=== PATIENT | male | born 1970 | race Caucasian/White ===

== ENCOUNTER 2018-10-27 17:36 | Observation (INO) | payer SELFPAY ==
[~2018-10-27] VITALS: Ht 180.3 cm; Wt 104.3 kg
[2018-10-27] MEDS ORDERED: SODIUM CHLORIDE 0.9% 1000ML 1,000 ML IV STA (17:39)
[2018-10-27] MEDS ORDERED: ASPIRIN 81 MG CHEW TAB PO ONE ×2 (17:45→19:30)
[2018-10-27 18:12] LABS: BASOPHILS # (AUTO) 0.1 (0.0-0.1); BASOPHILS % 0.5 % (0.0-1.0); EOSINOPHILS # (AUTO) 0.1 (0.0-0.4); EOSINOPHILS % 0.8 % (0.0-6.0); HEMATOCRIT 48.6 % (38.2-49.6); HEMOGLOBIN 17.1 g/dL (14.0-18.0); LYMPHOCYTES # (AUTO) 2.3 (1.0-3.2); LYMPHOCYTES % 19.2 % (18.0-39.1); MEAN CORPUSCULAR HEMOGLOBIN 30.4 pg (28-32); MEAN CORPUSCULAR HGB CONC 35.2 g/dL (31-35); MEAN CORPUSCULAR VOLUME 86.5 fL (81-99); MONOCYTES # (AUTO) 0.8 (0.2-0.8); MONOCYTES % 6.8 % (4.4-11.3); NEUTROPHILS # (AUTO) 8.5 (2.1-6.9); NEUTROPHILS % 72.2 % (38.7-80.0); PLATELET COUNT 255 x10e3/uL (140-360); RED BLOOD COUNT 5.62 x10e6/uL (4.3-5.7)
[2018-10-27] MEDS ORDERED: NITROGLYCERIN 2% OINT 1 GM PKT TOP ONE (18:15)
[2018-10-27 18:19] LABS: INR 0.96; PROTHROMBIN TIME 13.3 seconds (11.9-14.5)
[2018-10-27] MEDS ORDERED: ASPIRIN 81 MG CHEW TAB ONE (18:19)
[2018-10-27 18:20] LABS: PARTIAL THROMBOPLASTIN TIME 29.6 seconds (23.8-35.5)
--- NOTE | 2018-10-27 18:26 | Diagnostic Imaging Report ---
EXAMINATION: CHEST SINGLE (PORTABLE) INDICATION: Chest pain. Dizziness. ^ERMD ORDER ^[id number] ^1755 ^Y COMPARISON: None FINDINGS: TUBES and LINES: None. LUNGS: Lungs are well inflated. Lungs are clear. There is no evidence of pneumonia or pulmonary edema. PLEURA: No pleural effusion or pneumothorax. HEART AND MEDIASTINUM: The cardiomediastinal silhouette is unremarkable. BONES AND SOFT TISSUES: No acute osseous lesion. Soft tissues are unremarkable. UPPER ABDOMEN: No free air under the diaphragm. IMPRESSION: No acute thoracic abnormality. Signed by: Dr. Arthur Torres M.D. on 10/27/2018 6:22 PM
[2018-10-27 18:27] LABS: ALANINE AMINOTRANSFERASE 44 IU/L (0-55); ALBUMIN 4.2 g/dL (3.5-5.0); ALBUMIN/GLOBULIN RATIO 1.1 (0.8-2.0); ALKALINE PHOSPHATASE 87 IU/L (40-150); ANION GAP 13.7 mmol/L (8-16); BLOOD UREA NITROGEN 12 mg/dL (7-26); BUN/CREATININE RATIO 10 (6-25); CALCIUM 9.7 mg/dL (8.4-10.2); CARBON DIOXIDE 24 mmol/L (22-29); CHLORIDE 101 mmol/L (98-107); CREATINE KINASE 214 IU/L (30-200); CREATININE, SERUM 1.22 mg/dL (0.72-1.25); EST GLOMERULAR FILTRATION RATE > 60 ML/MIN (60-); GLUCOSE 107 mg/dL (74-118); POTASSIUM 3.7 mmol/L (3.5-5.1); SODIUM 135 mmol/L (136-145)
--- NOTE | 2018-10-27 18:56 | Diagnostic Imaging Report ---
Examination: CT head without contrast Clinical Indication: Dizziness. Shaking. Technique: Transaxial noncontrast images from the skull base through the vertex were obtained. Sagittal and coronal reformatted images were done. Dose modulation, iterative reconstruction, and/or weight based adjustment of the mA/kV was utilized to reduce the radiation dose to as low as reasonably achievable. Comparison: None. Findings: Scalp: No abnormalities. Bones: Intact. No fractures. No blastic or lytic lesions. Brain sulci: Appropriate for patient's age. Ventricles: Normal in size and configuration. No hydrocephalus. Extra-axial space: No abnormalities. Parenchyma: No abnormal densities. No masses, hemorrhage, or acute or chronic cortical based vascular insults. Suprasellar region: No abnormalities. Craniocervical junction: The foramen magnum is patent. No Chiari one malformation. Impression: No intracranial abnormality. Signed by: Dr. Irma Alcazar M.D. on 10/27/2018 6:53 PM
[2018-10-27] MEDS ORDERED: NITROGLYCERIN 0.4 MG SUBL SL PRN (19:30)
[2018-10-27] MEDS ORDERED: ONDANSETRON HCL INJ 2MG/ML 2ML 2 MG/ML VIAL IV PRN (19:30)
[2018-10-27 19:45] LABS: BILIRUBIN,URINE NEGATIVE (NEGATIVE); CLARITY,URINE CLEAR (CLEAR); COLOR,URINE YELLOW (YELLOW); KETONES,URINE NEGATIVE (NEGATIVE); LEUKOCYTE ESTERASE ,URINE NEGATIVE (NEGATIVE); NITRITE,URINE NEGATIVE (NEGATIVE); PROTEIN,URINE DIPSTICK NEGATIVE (NEGATIVE); URINE UROBILINOGEN 0.2 mg/dL (0.2 - 1)
[2018-10-27] MEDS ORDERED: ONDANSETRON HCL 4 MG ORAL DISINTEGRATING TAB PO PRN (19:45)
--- OUTSIDE RECORDS SUMMARY | 2018-10-27 19:53 | XMS REPORT ---
Author [facility] Address Unknown Phone Unavailable Care Team Providers Care Electric Motor Tester Name Role Phone Nadege LOJA Unavailable Unavailable Problems This patient has no known problems. Allergies, Adverse Reactions, Alerts This patient has no known allergies or adverse reactions. Medications This patient has no known medications. Results Test Description Test Time Test Comments Text Results Atomic Results Result Comments CT BRAIN WO 2018-10-27 18:52:00 [place] [address] Patient Name: SAMMY OCAMPO MR #: [id number] : 1970 Age/Sex: 48/M Req #: [id number] Adm Physician: Ordered by: JULIUS NOLAN GAMEPLAY PROGRAMMER Report #: [id number] Location: ER Room/Bed: Procedure: [id number] CT/CT BRAIN WO Exam Date: 10/27/18 Exam Time: 1755 REPORT STATUS: Signed Examination: CT head without contrast Clinical Indication: Dizziness. Shaking. Technique: Transaxial noncontrast images from the skull base through the vertex were obtained. Sagittal and coronal reformatted images were done. Dose modulation, iterative reconstruction, and/or weight based adjustment of the mA/kV was utilized to reduce the radiation dose to as low as reasonably achievable. Comparison: None. Findings: Scalp: No abnormalities. Bones: Intact. No fractures. No blastic or lytic lesions. Brain sulci: Appropriate for patient's age. Ventricles: Normal in size and configuration. No hydrocephalus. Extra-axial space: No abnormalities. Parenchyma: No abnormal densities. No masses, hemorrhage, or acute or chronic cortical based vascular insults. Suprasellar region: No abnormalities. Craniocervical junction: The foramen magnum is patent. No Chiari one malformation. Impression: No intracranial abnormality. Signed by: Dr. Irma Alcazar M.D. on 10/27/2018 6:53 PM Dictated By: IRMA MAYNARD MD 52 Transcribed By: SETH on 10/27/181852 COPY TO: JULIUS NOLAN NP CHEST SINGLE (PORTABLE) 2018-10-27 18:22:00 [place] [address] Patient Name: SAMMY OCAMPO MR #: [id number] : 1970 Age/Sex: 48/M Req #: [id number] Adm Physician: Ordered by: JULIUS NOLAN GAMEPLAY PROGRAMMER Report #: [id number] Location: ER Room/Bed: Procedure: [id number] DX/CHEST SINGLE (PORTABLE) Exam Date: 10/27/18 Exam Time: 1754 REPORT STATUS: Signed EXAMINATION: CHEST SINGLE (PORTABLE) INDICATION: Chest pain. Dizziness. ERMD ORDER [id number] 175 Y COMPARISON: None FINDINGS: TUBES and LINES: None. LUNGS: Lungs are well inflated. Lungs are clear. There is no evidence of pneumonia or pulmonary edema. PLEURA: No pleural effusion or pneumothorax. HEART AND MEDIASTINUM: The cardiomediastinal silhouette is unremarkable. BONES AND SOFT TISSUES: No acute osseous lesion. Soft tissues are unremarkable. UPPER ABDOMEN: No free air under the diaphragm. IMPRESSION: No acute thoracic abnormality. Signed by: Dr. Arthur Torres M.D. on 10/27/2018 6:22 PM Dictated By: ARTHUR TORRES MD, MD 21 Transcribed By: SETH on 10/27/181821 COPY TO: JULIUS NOLAN NP
[2018-10-27] MEDS: SODIUM CHLORIDE 0.9% 1000ML 1,000 ML IV SCH ×2 (20:34→23:03)
[2018-10-27] MEDS: METOPROLOL TARTRATE 25 MG TAB PO SCH (20:34)
[2018-10-27] MEDS: FAMOTIDINE 20 MG TAB PO SCH (20:34)
[2018-10-27 22:28] VITALS: BP 136/70
[2018-10-27 22:50] VITALS: BP 136/70
[2018-10-27 22:55] VITALS: BP 136/70
[2018-10-27] MEDS: NITROGLYCERIN 2% OINT 1 GM PKT TOP SCH (23:03)
[2018-10-27 23:30] VITALS: BP 125/61
[2018-10-28 02:10] LABS: CREATINE KINASE MB 1.4 ng/mL (0-5.0)
[2018-10-28] MEDS: NITROGLYCERIN 2% OINT 1 GM PKT TOP SCH ×2 (02:14→12:00)
[2018-10-28 04:00] VITALS: BP 124/63
[2018-10-28 05:49] LABS: BASOPHILS # (AUTO) 0.1 (0.0-0.1); BASOPHILS % 0.7 % (0.0-1.0); EOSINOPHILS # (AUTO) 0.3 (0.0-0.4); EOSINOPHILS % 2.8 % (0.0-6.0); HEMATOCRIT 43.9 % (38.2-49.6); HEMOGLOBIN 14.9 g/dL (14.0-18.0); LYMPHOCYTES # (AUTO) 2.3 (1.0-3.2); LYMPHOCYTES % 25.6 % (18.0-39.1); MEAN CORPUSCULAR HEMOGLOBIN 29.9 pg (28-32); MEAN CORPUSCULAR HGB CONC 33.9 g/dL (31-35); MONOCYTES # (AUTO) 0.8 (0.2-0.8); MONOCYTES % 8.6 % (4.4-11.3); NEUTROPHILS # (AUTO) 5.4 (2.1-6.9); NEUTROPHILS % 61.7 % (38.7-80.0); PLATELET COUNT 209 x10e3/uL (140-360); RED BLOOD COUNT 4.99 x10e6/uL (4.3-5.7); RED CELL DISTRIBUTION WIDTH 12.1 % (11.7-14.4)
[2018-10-28 06:10] LABS: ANION GAP 9.2 mmol/L (8-16); BLOOD UREA NITROGEN 13 mg/dL (7-26); BUN/CREATININE RATIO 12 (6-25); CALCIUM 8.6 mg/dL (8.4-10.2); CARBON DIOXIDE 24 mmol/L (22-29); CHLORIDE 109 mmol/L (98-107); CHOL/HDL RATIO 8.5 (3.9-4.7); CHOLESTEROL 230 MD/DL (0-199); CREATININE, SERUM 1.07 mg/dL (0.72-1.25); EST GLOMERULAR FILTRATION RATE > 60 ML/MIN (60-); GLUCOSE 102 mg/dL (74-118); HDL CHOLESTEROL 27 MG/DL (40-60); LDL CHOLESTEROL 167 MG/DL (60-130); POTASSIUM 4.2 mmol/L (3.5-5.1); SODIUM 138 mmol/L (136-145); TRIGLYCERIDES 181 MG/DL (0-149)
[2018-10-28] MEDS: METOPROLOL TARTRATE 25 MG TAB PO SCH (07:50)
[2018-10-28] MEDS: FAMOTIDINE 20 MG TAB PO SCH (08:50)
[2018-10-28 08:51] VITALS: BP 131/73
[2018-10-28] MEDS ORDERED: ASPIRIN 81 MG ENTERIC COATED PO SCH (09:00)
[2018-10-28 10:57] LABS: CREATINE KINASE MB 1.3 ng/mL (0-5.0)
[2018-10-28 13:47] VITALS: BP 138/83
[2018-10-28] MEDS ORDERED: ACETAMINOPHEN 325 MG TAB PO PRN (15:00)
--- NOTE | 2018-10-28 15:47 | Consultation ---
DATE OF CONSULTATION: 10/28/2018 REASON FOR CONSULTATION: Chest pain. CHIEF COMPLAINT: Dizziness. HISTORY OF PRESENT ILLNESS: This is a 48-year-old male with history of hypertension and not taking any medications. The patient presents to [facility] ER with complaints of dizziness, also had some chest discomfort. Cardiology was consulted to evaluate the patient. The patient seen in room, in no acute distress and feels fine now. Reports that yesterday morning about 10:00 a.m., he started having some dizziness, felt like disoriented, lightheaded, throughout the day the symptoms progressed. Apparently, he says he went to go get his hair cut and once the dizziness got worse he became disoriented even more, so came to the ER for further evaluation. During the episodes, he reports he had some very light retrosternal chest tightness, nonradiating; no other symptoms besides dizziness was reported; reports the chest pain lasted for a few minutes and resolved on its own. The patient was given aspirin; however, the patient refuses because of reported nasal bleeds. Currently, the patient is asymptomatic, feels much better, denies any chest pain, any shortness of breath, any PND, any orthopnea, any lower extremity swelling. PAST MEDICAL HISTORY: Hypertension, however, not taking any medications. PAST SURGICAL HISTORY: Right thumb. SOCIAL HISTORY: He is single. He is farm contractor. Denies any tobacco use. Reports social alcohol use. FAMILY HISTORY: Mother at the age of 62 during bowel surgery. Father alive, 86, history of CABG. He has three sisters, apparently all with hypertension. ALLERGIES: NO KNOWN ALLERGIES. HOME MEDICATIONS: None. REVIEW OF SYSTEMS: GENERAL: Denies any weight change, any fatigue, weakness, fevers, chills, or night sweats. HEENT: Denies any nausea, vomiting, vision changes, any blurred vision, double vision, epistaxis, sore throat or swollen neck, bleeding gums. CARDIAC: Positive for hypertension. Chest pain as above. Denies any shortness of breath. Positive for dyspnea on exertion. No orthopnea, no PND. No lower extremity edema. RESPIRATORY: Dyspnea on exertion. No hemoptysis. GI: Good appetite. No nausea, vomiting, diarrhea, constipation, any melena, or hematochezia. URINARY: Denies any frequency, urgency, dysuria, or hematuria. VASCULAR: Denies any lower extremity edema, claudication. MUSCULOSKELETAL: Denies any muscle weakness. Positive for joint pains. Denies any lower extremity swelling. NEUROLOGIC: Denies any numbness, tingling, weakness, paralysis, fainting, seizures. HEMATOLOGY: Denies any anemia, any easy bruising. ENDOCRINE: Denies any heat or cold intolerance, any polyuria, polydipsia, polyphagia. PHYSICAL EXAMINATION: VITAL SIGNS: Height 71 inches, weight 230 pounds, BMI 32. On admission, blood pressure 194/111 and currently 131/73, temperature 96.9, pulse 67, pulse ox 98% on room air. GENERAL: Appears stated age, reliable informant, in no acute distress. SKIN: No rashes or bruises noted. HEENT: Normocephalic. Pupils are equal and reactive. Extraocular movements intact. Oral mucosa pink. NECK: Trachea midline. No JVD. No thyromegaly noted. HEART: Regular rate and rhythm. No murmurs, rubs, or clicks. LUNGS: Bilateral breath sounds clear to auscultation. Good airway entry. ABDOMEN: Soft, nontender, nondistended. No organomegaly noted. MUSCULOSKELETAL: Good muscle strength throughout. Partial right thumb amputation. VASCULAR: +2 radial pulses bilaterally and 1 DP and PT pulses bilaterally. NEUROLOGIC: Cranial nerves 2 through 12 seem intact. LABS: Sodium 138, potassium 4.2, BUN 13, creatinine 1.0. Troponin 0.01, next is 0.1. BNP 10. Triglycerides 181, total cholesterol 230, LDL 167, HDL 27. Chest x- ray, no acute abnormalities. CT brain, also no intracranial abnormalities. EKG, normal sinus rhythm. ASSESSMENT: 1. Hypertension urgency. 2. Dizziness. 3. Chest pain. 4. Hyperlipidemia. PLAN: 1. The patient presents with dizziness symptoms in the setting of hypertension urgency, blood pressure of 190s/100s. Reports he feels much better since blood pressure now is controlled. Did have episode of some chest discomfort, very mild the patient reports nonexertional. Cardiac enzymes have been negative x2 thus far. EKG without changes suggestive of acute event. Long discussion with the patient regarding treatment options. The patient does not consent for aspirin therapy because of his reports of intermittent nasal bleeds and refuses aspirin therapy here in the hospital. 2. Ischemic evaluation. Stress test offered, however, the patient is not inclined at this time. 3. Continue antihypertensive therapy. Of note, the patient also not inclined to four blood pressure medications, specifically he says does not want to be taking diuretics i.e., hydrochlorothiazide. 4. I advised the patient that he should be on statin therapy. We will go ahead and put him on Lipitor. 5. For now, the patient okay to leave since the patient is not consenting for or inclined for stress testing. Thank you very much for this consult. SEEN AND EXAMINED Dictated by Brandon Gordon NP Adriana Torres MD DC/NANETTE /[id number] ACE
[2018-10-28 17:10] VITALS: BP 154/87
[2018-10-28] MEDS ORDERED: LIPITOR20 MG (18:01)
[2018-10-28] MEDS ORDERED: ASPIRIN81 MG PO (18:01)
[2018-10-28] MEDS ORDERED: METOPROLOL TART25 MG PO (18:02)
--- NOTE | 2018-10-28 18:26 | NUR ---
patient discharged home, prescription given, IV canula removed with tip intact, no ss infiltration, denies any pain, not in any distress, walked with him to front lobby
--- NOTE | 2018-10-28 19:43 | Discharge Summary ---
HOSPITAL COURSE: A 48-year-old male, past medical history positive for hypertension, came with chest pain. EKG was normal, cardiac enzymes x3 were negative and he was discharged by Dr. Torres, Cardiology. He is going to have a stress test as an outpatient. He is told to come to the emergency room if the chest pain recurs. PHYSICAL EXAMINATION: HEART: Showed regular rhythm. Normal S1, S2 sound. LUNGS: Clear bilaterally. ABDOMEN: Soft. EXTREMITIES: Show no evidence of cyanosis, edema, or trauma. FINAL IMPRESSION: 1. Uncontrolled hypertension. 2. Atypical chest pain. 3. Hypercholesterolemia. The patient is going to be discharged on the medication that I already dictated in my prior history and physical. Follow up with Dr. Torres, Cardiology in a week for a stress test or come to the emergency room right away if the chest pain recurs. MD JUDITH Jean/NANETTE /[id number]
[2018-10-28] MEDS ORDERED: ATORVASTATIN 20 MG TAB PO SCH ×2 (21:00)
--- NOTE | 2018-10-28 22:50 | History and Physical ---
HISTORY OF PRESENT ILLNESS: The patient is a 48-year-old male with past medical history mainly positive for hypertension. He taking any blood pressure medication in the past, came with chest pain. Cardiac enzymes were negative. EKG was unremarkable. The patient refused to have a stress test done by Dr. Torres here. He want to have it done as an outpatient. He is chest pain-free. Troponins x3 were negative. Dr. Torres recommended for him to go home and do the stress test as an outpatient. REVIEW OF SYSTEMS: CARDIOVASCULAR: He had chest pain, which . RESPIRATORY: No shortness of breath. No cough. GASTROINTESTINAL: No nausea, vomiting, or diarrhea. GENITOURINARY: No frequency or no dysuria. ALLERGIES: HE IS NOT ALLERGIC TO ANYTHING. SOCIAL HISTORY: He does not drink alcohol. He does not smoke. PAST MEDICAL HISTORY: Negative for any significant medical condition except for borderline hypertension. PHYSICAL EXAMINATION: VITAL SIGNS: Blood pressure 138/83, temperature 98.7, heart rate 69 per minute, respiratory rate 18 per minute, and oxygen saturation 95%. HEART: Showed regular rhythm. Normal S1, S2 sound. LUNGS: Clear bilaterally. ABDOMEN: Soft. EXTREMITIES: Show no evidence of cyanosis or hematoma. LABORATORY DATA: BMP; sodium 138, potassium 4.2, chloride 109, CO2 of 24, BUN 13, creatinine 1.07, and glucose 102. On CBC, white count 8.79, hemoglobin 14.9, hematocrit 43.9, and platelet count 209,000. PT 13.3, INR 0.96, PTT 29.6, AST 30, ALT 44, total bilirubin is 1.3, and alkaline phosphatase 87. Troponin negative. EKG is essentially unremarkable and showed normal sinus rhythm, moderate voltage criteria for LVH. Echocardiogram was also done showing an ejection fraction 50% to 55%. No evidence of pericardial effusion. No evidence of severe valvular abnormalities. He has trace . IMPRESSION: 1. Uncontrolled hypertension. 2. Atypical chest pain. 3. Hypercholesterolemia. PLAN OF TREATMENT: The patient is going to be discharged on metoprolol 25 mg twice a day, aspirin 81 mg daily, and Lipitor 20 mg daily. MD JUDITH Jean/NANETTE /[id number]
== END 2018-10-28 18:24 | disposition home or self-care (01) ==
LOC: ER 17:36 → ERHOLD 19:50 → IMCU 22:20
PROVIDERS: ADMIT Internal Medicine; ATTEND Internal Medicine
DX: R07.89 Other chest pain (principal); I10 Essential (primary) hypertension; E78.00 Pure hypercholesterolemia, unspecified
CPT/HCPCS: 36415 ×2; 70450; 71045; 80048; 80053; 80061; 81001; 82550 ×2; 82553 ×2; 83880; 84484 ×2; 85025 ×2; 85610; 85730; 87086; 93005; 93306; 99284; G0378 ×2; J7030

== ENCOUNTER 2019-02-16 07:41 | Observation (INO) | payer SELFPAY ==
[~2019-02-16] VITALS: Ht 180.3 cm; Wt 106.6 kg
[~2019-02-16 07:41] MED LIST: ASPIRIN81 MG PO; LIPITOR20 MG; METOPROLOL TART25 MG PO
[2019-02-16] MEDS ORDERED: ASPIRIN 81 MG CHEW TAB PO ONE (08:00)
[2019-02-16] MEDS ORDERED: ASPIRIN 81 MG ENTERIC COATED PO ONE (08:09)
[2019-02-16 08:18] LABS: BILIRUBIN,URINE NEGATIVE (NEGATIVE); CLARITY,URINE CLEAR (CLEAR); COLOR,URINE YELLOW (YELLOW); KETONES,URINE NEGATIVE (NEGATIVE); LEUKOCYTE ESTERASE ,URINE NEGATIVE (NEGATIVE); NITRITE,URINE NEGATIVE (NEGATIVE); PROTEIN,URINE DIPSTICK NEGATIVE (NEGATIVE); URINE UROBILINOGEN 0.2 mg/dL (0.2 - 1)
[2019-02-16 08:21] LABS: BASOPHILS # (AUTO) 0.1 (0.0-0.1); BASOPHILS % 0.7 % (0.0-1.0); EOSINOPHILS # (AUTO) 0.3 (0.0-0.4); EOSINOPHILS % 3.5 % (0.0-6.0); HEMATOCRIT 46.4 % (38.2-49.6); HEMOGLOBIN 16.3 g/dL (14.0-18.0); LYMPHOCYTES # (AUTO) 1.4 (1.0-3.2); LYMPHOCYTES % 19.1 % (18.0-39.1); MEAN CORPUSCULAR HEMOGLOBIN 30.8 pg (28-32); MEAN CORPUSCULAR HGB CONC 35.1 g/dL (31-35); MEAN CORPUSCULAR VOLUME 87.5 fL (81-99); MONOCYTES # (AUTO) 0.6 (0.2-0.8); MONOCYTES % 8.4 % (4.4-11.3); NEUTROPHILS # (AUTO) 4.9 (2.1-6.9); NEUTROPHILS % 67.9 % (38.7-80.0); PLATELET COUNT 226 x10e3/uL (140-360); RED CELL DISTRIBUTION WIDTH 12.1 % (11.7-14.4)
[2019-02-16 08:37] LABS: BACTERIA,URINE RARE /HPF; EPITHELIAL CELLS,URINE RARE /LPF; RBC,URINE 0-5 /HPF (0-5)
--- NOTE | 2019-02-16 08:37 | NUR ---
PT STATES DR PALMA IS TO DO A HEART CATH ON 02/28, BUT NOW IS TO MOVE IT UP AND DO IT WHILE PT IS HERE. PT DENIES CP. AAOX4. SR NO ECTOPY
[2019-02-16 08:39] LABS: ALANINE AMINOTRANSFERASE 56 IU/L (0-55); ALBUMIN/GLOBULIN RATIO 1.1 (0.8-2.0); ALKALINE PHOSPHATASE 102 IU/L (40-150); BLOOD UREA NITROGEN 13 mg/dL (7-26); BUN/CREATININE RATIO 11 (6-25); CALCIUM 9.2 mg/dL (8.4-10.2); CARBON DIOXIDE 24 mmol/L (22-29); CHLORIDE 103 mmol/L (98-107); CREATINE KINASE 141 IU/L (30-200); CREATININE, SERUM 1.17 mg/dL (0.72-1.25); EST GLOMERULAR FILTRATION RATE > 60 ML/MIN (60-); GLUCOSE 121 mg/dL (74-118); SODIUM 137 mmol/L (136-145)
[2019-02-16] MEDS ORDERED: ONDANSETRON HCL INJ 2MG/ML 2ML 2 MG/ML VIAL IV PRN (09:00)
[2019-02-16] MEDS ORDERED: NITROGLYCERIN 0.4 MG SUBL SL PRN (09:00)
[2019-02-16] MEDS: METOPROLOL TARTRATE 25 MG TAB PO SCH ×2 (09:13→13:52)
[2019-02-16] MEDS: ASPIRIN 81 MG ENTERIC COATED PO SCH (09:13)
--- NOTE | 2019-02-16 09:33 | Diagnostic Imaging Report ---
EXAMINATION: CHEST SINGLE (PORTABLE) INDICATION: Chest pain COMPARISON: Chest radiograph of 10/27/2018 FINDINGS: LINES/TUBES:EKG leads overlie the chest. LUNGS:The lungs are well-inflated. No focal consolidation or pulmonary edema. PLEURA:No pleural effusion or pneumothorax. MEDIASTINUM:Cardiomediastinal silhouette is stably enlarged. BONES/SOFT TISSUES:No acute osseous injury. ABDOMEN:No free air under the diaphragm. IMPRESSION: No focal pneumonia or pulmonary edema. Unchanged cardiomegaly. Signed by: Demar Goldberg MD on 02/16/2019 9:30 AM
--- NOTE | 2019-02-16 10:10 | NUR ---
FIRST (1ST) NITRO 0.4MG @ 0953 WITH ACUTE ONSET OF CHEST PAIN NON RADIATING WITH "SOME NAUSEA," NO SOB NO DIAPHORESIS; PAIN 5/10 BP 144/91, 67, 16, 100 RA (PLACED ON OXYGEN 2 LPM) 2ND NITRO @ 0957; PAIN 2/10, HR 71, 16, 100%, 128/86 3RD NITRO @ 1005 118/72, 67, 16, 100% PAIN NOW GONE PER PT "CANT FEEL ANYTHING". ER MD NOTIFIED.
[2019-02-16] MEDS: FAMOTIDINE 20 MG/2 ML VIAL IV SCH ×2 (10:15→20:17)
[2019-02-16 10:24] VITALS: BP 144/91
[2019-02-16 13:18] VITALS: BP 152/90
--- NOTE | 2019-02-16 17:55 | Consultation ---
DATE OF CONSULTATION: 02/16/2019 Cardiology Consultation REQUESTING PHYSICIAN: Etienne Harrison MD. REASON FOR CONSULTATION: Chest pain. HISTORY OF PRESENT ILLNESS: This is a 48-year-old male with history of hypertension and hyperlipidemia, who presents with complaints of chest pain. He was recently admitted to [facility] with similar complaints. He was ruled out for myocardial infarction and discharged home for outpatient cardiac evaluation. He saw my colleague, Dr. Casillas in the office and was scheduled for a nuclear stress test later this month. However, yesterday evening, he developed chest pressure 3 to 4/10 in severity, lasting 3 to 4 hours. This was not associated with shortness of breath, nausea, diaphoresis, or radiation. He noted it was worse with lying down and improved with taking metoprolol. He then went to sleep, but when he woke up this morning, he noted his blood pressure was high and he presented to the ER for further evaluation. Of note, he reports urinary frequency since last night. REVIEW OF SYSTEMS: A 12-point review of systems was performed and is negative except as per HPI. PAST MEDICAL HISTORY: 1. Hypertension. 2. Hyperlipidemia. ALLERGIES: PLEASE SEE EMR. MEDICATIONS: Please see medication list. SOCIAL HISTORY: Denies tobacco or illicit drugs. He does drink alcohol occasionally. FAMILY HISTORY: Pertinent for heart disease in the family, specifically father with myocardial infarction x2. PHYSICAL EXAMINATION: VITAL SIGNS: Temperature 98.4 degrees, pulse 64, respiratory rate 12, blood pressure 144/91, and oxygen saturation 100%. GENERAL: Well-developed, well-nourished man, no acute distress. HEENT: Normocephalic, atraumatic. Pupils equal. No scleral icterus. NECK: Supple. No thyromegaly or cervical lymphadenopathy. No carotid bruits. LUNGS: Clear to auscultation bilaterally. No wheezes or crackles. CARDIOVASCULAR: Normal rate. Regular rhythm. No murmur. Normal S1, S2. ABDOMEN: Soft, nontender. EXTREMITIES: No edema. NEUROLOGIC: Nonfocal exam. LABORATORY DATA: WBC 7.23, hemoglobin 16.3, hematocrit 46.4, platelets 226. Sodium 137, potassium 4, chloride 103, CO2 24, BUN 13, creatinine 1.17. Troponin 0.012. EKG, normal sinus rhythm, minimal voltage criteria for LVH. Chest x-ray, no focal pneumonia or pulmonary edema. Unchanged cardiomegaly. IMPRESSION: 1. Chest pain. 2. Hypertension. 3. Hyperlipidemia. RECOMMENDATIONS: Trend cardiac markers to rule out myocardial infarction. Check CRP and D-dimer. Once he rules out for myocardial infarction, plan to proceed with nuclear stress test either later this afternoon or in the morning. Continue home cardiac medications. Thank you for this consult. We will continue to follow. Hazel Smith MD ABS/MODL /[id number]
[2019-02-16] MEDS ORDERED: LISINOPRIL 10 MG TAB PO ONE (18:30)
[2019-02-16 20:00] VITALS: BP 128/70
[2019-02-16] MEDS ORDERED: ATORVASTATIN 20 MG TAB PO SCH (21:00)
[2019-02-16 21:47] VITALS: BP 128/70
[2019-02-17] VITALS: BP 130/78
[2019-02-17 04:00] VITALS: BP 118/78
[2019-02-17 05:25] LABS: BASOPHILS # (AUTO) 0.1 (0.0-0.1); BASOPHILS % 0.5 % (0.0-1.0); EOSINOPHILS # (AUTO) 0.4 (0.0-0.4); EOSINOPHILS % 3.3 % (0.0-6.0); HEMATOCRIT 45.8 % (38.2-49.6); HEMOGLOBIN 15.6 g/dL (14.0-18.0); LYMPHOCYTES # (AUTO) 2.7 (1.0-3.2); LYMPHOCYTES % 25.4 % (18.0-39.1); MEAN CORPUSCULAR HEMOGLOBIN 30.1 pg (28-32); MEAN CORPUSCULAR HGB CONC 34.1 g/dL (31-35); MEAN CORPUSCULAR VOLUME 88.2 fL (81-99); MONOCYTES # (AUTO) 0.8 (0.2-0.8); MONOCYTES % 7.6 % (4.4-11.3); NEUTROPHILS # (AUTO) 6.6 (2.1-6.9); NEUTROPHILS % 62.5 % (38.7-80.0); PLATELET COUNT 239 x10e3/uL (140-360); RED BLOOD COUNT 5.19 x10e6/uL (4.3-5.7); RED CELL DISTRIBUTION WIDTH 12.2 % (11.7-14.4)
[2019-02-17 05:55] LABS: ALANINE AMINOTRANSFERASE 51 IU/L (0-55); ALBUMIN 3.6 g/dL (3.5-5.0); ALKALINE PHOSPHATASE 88 IU/L (40-150); ANION GAP 12.2 mmol/L (8-16); BLOOD UREA NITROGEN 15 mg/dL (7-26); BUN/CREATININE RATIO 12 (6-25); CALCIUM 9.2 mg/dL (8.4-10.2); CARBON DIOXIDE 25 mmol/L (22-29); CHLORIDE 105 mmol/L (98-107); CHOL/HDL RATIO 6.9 (3.9-4.7); CHOLESTEROL 193 MD/DL (0-199); CREATININE, SERUM 1.25 mg/dL (0.72-1.25); EST GLOMERULAR FILTRATION RATE > 60 ML/MIN (60-); GLUCOSE 107 mg/dL (74-118); HDL CHOLESTEROL 28 MG/DL (40-60); LDL CHOLESTEROL 140 MG/DL (60-130); POTASSIUM 4.2 mmol/L (3.5-5.1); SODIUM 138 mmol/L (136-145); TRIGLYCERIDES 125 MG/DL (0-149)
[2019-02-17 07:58] VITALS: BP 131/78
[2019-02-17 08:01] VITALS: BP 131/78
[2019-02-17 08:18] LABS: CREATINE KINASE MB 0.6 ng/mL (0-5.0)
[2019-02-17] MEDS ORDERED: LISINOPRIL 10 MG TAB PO SCH (09:00)
[2019-02-17] MEDS: FAMOTIDINE 20 MG/2 ML VIAL IV SCH (09:26)
--- NOTE | 2019-02-17 12:46 | Progress Note ---
DATE: 02/17/2019 Cardiology Progress Note SUBJECTIVE: The patient reports he had slight chest pain earlier similar to presentation, although less severe. He denies any shortness of breath. He was seen for nuclear stress test. OBJECTIVE: VITAL SIGNS: Temperature 97.3 degrees, pulse 89, respiratory rate 18, blood pressure 131/78, and oxygen saturation 96% on room air. GENERAL: Awake and alert, in no acute distress. LUNGS: Clear to auscultation bilaterally. No wheeze or crackles. CARDIOVASCULAR: Normal rate. Regular rhythm. No murmur. Normal S1, S2. ABDOMEN: Soft and nontender. EXTREMITIES: No edema. CARDIAC MEDICATIONS: 1. Atorvastatin 20 mg p.o. at bedtime. 2. Metoprolol tartrate 25 mg p.o. q.12 hours. 3. Aspirin 81 mg p.o. daily. 4. Lisinopril 10 mg p.o. daily. LABORATORY DATA: WBC 10.61, hemoglobin 15.6, hematocrit 45.8, platelets 239. Sodium 138, potassium 4.2, chloride 105, CO2 of 25, BUN 15, creatinine 1.25. TELEMETRY: Normal sinus rhythm. IMPRESSION: 1. Chest pain. 2. Hypertension. 3. Hyperlipidemia. RECOMMENDATIONS: The patient ruled out for myocardial infarction. CRP is pending, but D-dimer was negative. Further recommendations pending review of stress images once they are available. Continue current cardiac medications. Further titration of antihypertensive therapy as an outpatient. Thank you for this consult. We will continue to follow. Hazel Smith MD ABS/MODL /[id number]
[2019-02-17 16:02] VITALS: BP 135/81
[2019-02-17] MEDS: ASPIRIN 81 MG ENTERIC COATED PO SCH (17:18)
[2019-02-17] MEDS: METOPROLOL TARTRATE 25 MG TAB PO SCH (17:19)
--- NOTE | 2019-02-17 17:52 | NUR ---
patient resting in bed, Alert with no distress, denies any chest pain or SOB, Tolerated dinner
[2019-02-17] MEDS ORDERED: LISINOPRIL10 MG PO (18:23)
--- NOTE | 2019-02-17 18:32 | NUR ---
Call recvd from Dr Smith that Stress test is normal and patient can go home, Notified Oncall of Dr Nacho Lozano (Dr Rayo), discharge order recvd, prescription given, not in any distress, IV canula removed with tip intact, no ss of infiltration, escorted him to walk front lobby
--- NOTE | 2019-02-17 19:56 | Myoview Stress Test ---
DATE OF STUDY: 02/16/2019 11:02:00 Stress Test - Treadmill ONLY PROCEDURE TITLE: Rest/stress single isotope SPECT imaging with exercise stress and gated SPECT imaging. INDICATION: Chest pain. PROCEDURE IN DETAIL: The patient performed treadmill exercise using a Jose protocol, exercising for 9 minutes 1 second to stage III, completing estimated workload of 10.1 metabolic equivalents (METs). The heart rate was 92 beats per minute at rest and increased to 152 beats per minute at peak exercise. The resting blood pressure is 138/83 mmHg and increased to 187/89 mmHg, which is a normal response. The resting electrocardiogram demonstrated normal sinus rhythm. There were no ST-segment changes suggestive of myocardial ischemia. Myocardial perfusion imaging was performed at rest following the injection of 11 mCi of sestamibi. At peak exercise, the patient was injected with 32.9 mCi of sestamibi. Gated post-stress tomographic imaging was performed. FINDINGS: The overall quality of study is fair. Left ventricular cavity is noted to be normal size on the rest and stress studies. SPECT images demonstrate homogeneous tracer distribution throughout the myocardium. Gated SPECT imaging reveals normal myocardial thickening and wall motion. The left ventricular ejection fraction was calculated to be 57%. IMPRESSION: Myocardial perfusion imaging is normal. Overall, left ventricular systolic function was normal without regional wall motion abnormalities. Hazel Smith MD ABS/MODL /[id number]
--- NOTE | 2019-03-30 22:39 | Discharge Summary ---
CHIEF COMPLAINT: Left-sided chest pressure. FINAL DIAGNOSES: Chest pain, hypertension, hyperlipidemia. HOSPITAL COURSE: A 48-year-old male with known history of essential systolic hypertension, hyperlipidemia, brought to the ER with a 1-day history of intermittent mid-to-left chest pressure, nonradiating. No diaphoresis, but there has been some shortness of breath and some nausea. No similar episodes in the past. The patient does have a history of frequent epistaxis episodes. He underwent routine evaluation in the emergency room. Studies were conducted. Admission was made for evaluation of chest pain, rule out cardiac ischemia; essential hypertension, uncontrolled; hyperlipidemia; positive family history of coronary artery disease. With admission, we will be monitoring cardiac enzymes, monitoring and controlling the patient's blood pressure. We will be requesting a Cardiology followup. With admission regarding the patient's chest complaints, did undergo a coronary review with Dr. Smith and with her review, her impression was chest pain, hypertension, hyperlipidemia. Recommend continuing to monitor the cardiac markers to rule out [place]. Recommend checking CRP with D-dimer. Once he was out for [place], plan to proceed with nuclear stress test. Recommend continuing current medications. The patient was placed in IMCU from the ER. He is on a cardiac diet. He was resting comfortably. He was on his regular other medications. BP was responded to treatment. He was given nitroglycerin 0.4 mg sublingual q.5 minutes x3 for chest pain. The cardiac enzymes were monitored. The patient was set for the stress test. The patient will be scheduled for discharge once cleared by Cardiology. The patient underwent the stress test and was cleared by Cardiology and was released home on 02/17/2019, in stable condition. Stress test on the patient showed myocardial perfusion imaging to be normal. Overall left ventricular systolic function was normal without regional wall motion abnormalities. X-rays of the chest, findings reveal no focal pneumonia or pulmonary edema. Unchanged cardiomegaly. Laboratory studies show a CBC to be unremarkable. Followup studies remain the same. Urinalysis unremarkable. Chemistry studies initial panel; electrolytes stable, kidney function stable, glucose 121. First set of cardiac enzymes were normal. Two more sets of cardiac enzymes showed normal findings. Followup chemistries were stable. Repeat glucose 107. With the panel showing triglycerides of 125, cholesterol 193, LDL 140, HDL 28. The patient responded well, was cleared for discharge, IVs were discontinued. The patient was able to be released home in good condition. With discharge, the patient will continue on his cardiac diet. No equipments or supplies are necessary. No drains or Peterson was needed. Activity level as directed by myself as well as by Dr. Smith. FOLLOWUP CARE: The patient will be reporting back to PCP following back up with Cardiology as recommended. He will be continued on aspirin 81 mg daily, Lipitor 20 mg daily, lisinopril 10 mg p.o. daily, metoprolol tartrate 25 mg p.o. q.12. Dictated by ELISE Hernandez Deepak Lozano MD CC/MODL /[id number]
== END 2019-02-17 18:42 | disposition home or self-care (01) ==
LOC: ER 07:41 → ERHOLD 08:59 → IMCU 13:12
DX: R07.2 Precordial pain (principal); R00.2 Palpitations; I10 Essential (primary) hypertension; E78.5 Hyperlipidemia, unspecified; Z82.49 Family history of ischemic heart disease and other diseases of the circulatory system
CPT/HCPCS: 36415 ×2; 71045; 78452; 80053 ×2; 80061; 81001; 82550 ×2; 82553 ×2; 84484 ×2; 85025 ×2; 85379; 86140; 93005; 93017; 99284; A9502; G0378 ×2